=== PATIENT | male | born 1960 | race Caucasian/White ===

== ENCOUNTER → 2016-10-25 | Outpatient (CLI) | payer OTHER | LOC: CAT 12:03 | DX: I25.10 Atherosclerotic heart disease of native coronary artery without angina pectoris (principal); K44.9 Diaphragmatic hernia without obstruction or gangrene; J43.9 Emphysema, unspecified; Z95.5 Presence of coronary angioplasty implant and graft ==

== ENCOUNTER → 2017-10-25 | Outpatient (CLI) | payer OTHER | LOC: CAT 09:46 | DX: J43.9 Emphysema, unspecified (principal); K80.50 Calculus of bile duct without cholangitis or cholecystitis without obstruction; R91.8 Other nonspecific abnormal finding of lung field; C01 Malignant neoplasm of base of tongue ==